=== PATIENT | male | born 1945 | race Caucasian/White ===

== ENCOUNTER 2023-07-03 10:34 | Emergency (ER) | payer MEDICARE, OTHER, SELFPAY ==
[2023-07-03 10:45] VITALS: BP 116/60
--- NOTE | 2023-07-03 11:34 | ED.GENMED ---
History of Present Illness
General
Chief Complaint: Skin Problem
Source: patient and spouse
Exam Limitations: none
Time Seen by Provider: 07/03/23 11:01
Travel History
Have you had any contact with someone who has COVID-19?: No
Do you have any symptoms of coronavirus? Fever > 100 degrees, chills, cough, shortness of breath, sore throat, loss of taste or smell, muscle aches, or headache?: No
History of Present Illness
History of Present Illness:
Ongoing cyst to the back that became inflamed and infected over this past week. Increased pain today. Minimal drainage. No systemic infectious symptoms.
Past History
Past History
ED Past Medical History: HTN
ED Past Surgical History: Appendectomy and Orthopedic
Social History
Tobacco: Non-smoker
Alcohol: None
Drug: None
Personal:
Living: with family
Review of Systems
Review of Systems
All Other Systems: Not applicable
Constitutional: Denies fever
Phy Exam
Physical Exam
Physical Exam:
General: Nontoxic appearing in no distress
Skin: Warm and dry, 3 cm indurated elevated abscess to the mid back. Small amount of drainage.
Neuro: Alert, nontoxic, grossly nonfocal
Psychiatric: Good eye contact and appropriate
Lungs: No respiratory distress
Course
Orders/Labs/Results
Orders:
Orders
07/03/23 11:34
Wound Culture [Wound/Abscess/Other Culture] Urgent
AYESHA Source: Abscess
Specimen Description:
Date Specimen was Collected: 07/03/23
Time Specimen was Collected: 11:49
Doxycycline [Vibramycin] 100 mg PO NOW STA
Vital Signs
Initial and Last Documented VS:
Initial Vital Signs
Temp Pulse Resp BP Pulse Ox
98.1 F 90 16 116/60 98
07/03/23 10:45 07/03/23 10:45 07/03/23 10:45 07/03/23 10:45 07/03/23 10:45
Last Documented Vital Signs
Temp Pulse Resp BP Pulse Ox
98.1 F 90 16 116/60 98
07/03/23 10:45 07/03/23 10:45 07/03/23 10:45 07/03/23 10:45 07/03/23 10:45
Procedures
Incision/Drainage/Joint Aspiration
Middle Back:
Anethesia: 1% Lidocaine with Epi
Preparation: cleaned with Betadine
Type of procedure: drain
Nature of site: abscess
Description of abscess: greater than 3cm and complex
Loculations broken up: Yes
How much fluid was obtained?: small amount (She is centimeters purulent)
Fluid description: purulent
Treatment: left open for drainage, placed surgical drain and antibiotics started
*Critical Care Note
Total Time (30-74mins, 75-104mins- exclusive of procedures): Not Applicable
ED Attending Note
-
Portions of this chart may have been created with voice recognition software.� Occasional wrong word or��sound alike� substitutions may have occurred due to the inherent limitations of voice recognition software.
Discharge Plan
Departure
Date of Disposition: 07/03/23
Time of Disposition: 11:36
Patient with high blood pressure during this ER visit?: Yes
Instructions: BLOOD PRESSURE, Skin Abscess
Prescriptions:
New
doxycycline hyclate 100 mg capsule
100 mg PO BID 10 Days Qty: 20 0RF
Activity Restrictions/Additional Instructions:
Your antibiotic prescription was sent to your pharmacy
Packing removal in 2 to 3 days, if it has not fallen out on its own
Interventions
Interventions:
*Risk Screen - Suicide Last Done: 07/03/23 11:54
*General Assessment Last Done: 07/03/23 11:53
*ED COVID-19 Vaccine History Last Done: 07/03/23 10:45
ED-Skin Assessment Last Done: 07/03/23 11:54
Discharge Date and Time
Print Language: SAMI
[2023-07-03] MEDS: VIBRAMYCIN 100 MG PO (11:48)
== END 2023-07-03 12:12 | disposition home or self-care (01) ==
LOC: EMR 10:34
PROVIDERS: EMERGENCY PHYSICIAN Emergency Medicine; FAMILY PHYSICIAN Family Medicine
DX: L02.212 Cutaneous abscess of back [any part, except buttock and flank] (principal); I10 Essential (primary) hypertension
CPT/HCPCS: 99284; 10060; 87070; 87205

== ENCOUNTER → 2023-07-08 13:19 | Outpatient (REF) | payer MEDICARE, OTHER, SELFPAY ==
[2023-07-08 13:56] LABS: % Basophils 1.1 % (0-2); % Eosinophils 3.9 % (0-6); % Immature Granulocytes 0.6 % (0-0.5); % Lymphocytes 31.6 % (20.5-51.1); % Monocytes 9.7 % (1.7-9.3); % Neutrophils 53.1 % (42.2-75.2); Absolute Basophils 0.1 10^3/uL (0-0.2); Absolute Eosinophils 0.2 10^3/uL (0-0.7); Absolute Lymphocytes 1.7 10^3/uL (1.2-3.4); Absolute Monocytes 0.5 10^3/uL (0.1-0.6); Absolute Neutrophils 2.8 10^3/uL (1.4-6.5); Hematocrit 48.7 % (39.0-52.0); Hemoglobin 17.3 g/dL (13.0-18.0); Mean Corp Hgb Conc. 35.5 g/dL (33.0-37.0); Mean Corpuscular Volume 101.5 fL (80.0-94.0); Mean Platelet Volume 9.4 fL (7.4-10.4); Nucleated Red Blood Cells % 0 % (-); Platelet Count 174 10^3/uL (130-400); Red Cell Dist. Width 12.5 % (11.5-14.5); White Blood Cell Count 5.3 10^3/uL (4.8-10.8)
[2023-07-08 14:23] LABS: ALT (SGPT) 80 U/L (0-50); AST (SGOT) 85 U/L (17-59); Albumin 4.4 g/dl (3.5-5.0); Alkaline Phosphatase 69 U/L (38-126); Blood Urea Nitrogen 8 mg/dl (9-20); Calcium 9.3 mg/dl (8.4-10.2); Carbon Dioxide 26 mmol/L (22-30); Chloride 97 mmol/L (98-107); Glucose 91 mg/dl (70-99); Potassium 4.5 mmol/L (3.5-5.1); Sodium 131 mmol/L (135-145); Total Bilirubin 0.9 mg/dl (0.2-1.3); Total Protein 7.2 g/dl (6.3-8.2); eGFR > 60.00
[2023-07-08 14:46] LABS: Glycohemoglobin (HgbA1c) 5.3 % (4.0-5.6)
[2023-07-08 14:49] LABS: Hepatitis A IgM Antibody Negative (Negative); Hepatitis B Core Ab, IgM Negative (Negative)
[2023-07-08 14:52] LABS: Hepatitis B Surface Antigen Negative (Negative)
[2023-07-08 15:09] LABS: Hepatitis B Core Ab, Total Negative (Negative); Hepatitis B Surface Antibody Negative; Hepatitis C Antibody Negative (Negative)
[2023-07-08 15:17] LABS: Hepatitis A Antibody, Total Positive (Negative)
== END ==
LOC: REG 13:19
PROVIDERS: ATTENDING PHYSICIAN Registered Nurse Ambulatory Care; FAMILY PHYSICIAN Registered Nurse
DX: K76.0 Fatty (change of) liver, not elsewhere classified (principal); R79.89 Other specified abnormal findings of blood chemistry; R74.01 Elevation of levels of liver transaminase levels; R73.01 Impaired fasting glucose
CPT/HCPCS: 36415; 80053; 83036; 85025; 86704; 86705; 86706; 86708; 86709; 86803; 87340

== ENCOUNTER → 2023-12-06 10:38 | Outpatient (REF) | payer MEDICARE, OTHER, SELFPAY | LOC: RCS 10:38 | PROVIDERS: ATTENDING PHYSICIAN Internal Medicine Cardiovascular Disease; FAMILY PHYSICIAN Family Medicine | DX: R06.09 Other forms of dyspnea (principal); R55 Syncope and collapse | CPT/HCPCS: 93306 ==

== ENCOUNTER 2024-04-19 08:45 | Emergency (ER) | payer MEDICARE, OTHER, SELFPAY ==
[2024-04-19 08:51] VITALS: BP 137/73
--- NOTE | 2024-04-19 10:58 | ED.GENMED ---
History of Present Illness
General
Chief Complaint: Change in Mental Status
Source: patient and family
Exam Limitations: none
Time Seen by Provider: 04/19/24 10:41
History of Present Illness
History of Present Illness:
78yoM with a history of atrial fibrillation on Eliquis and glaucoma presenting with his for evaluation of confusion. states that he he has had some mild confusion over the past 6 months and he seems to have difficulty understanding
things. He went on a family trip this past week and he had an episode of confusion several days ago in which he was unable to find the refrigerator. He was scheduled to have a meeting yesterday with a friend but did not remember that he had this
scheduled and also did not recall that he spoke with his friend on the phone. states he appears to be at baseline today and is lucid. Additionally, patient has been having left ankle pain and swelling for the past week or so. He is unsure of
any trauma. He denies any calf pain. He is otherwise asymptomatic and denies any chest pain, shortness of breath, vomiting, diarrhea, fevers.
Past History
Past History
ED Past Medical History: HTN
ED Past Surgical History: Appendectomy and Orthopedic
Social History
Tobacco: Non-smoker
Alcohol: None
Drug: None
Personal:
Living: with family
Phy Exam
General Physical Exam
General Presentation: well appearing and no apparent distress
General age: appears stated age
General Skin: warm and dry
General Habitus: normal
General Mental: alert
ENT Exam
ENT Exam: normocephalic
Cardiovascular Exam
Cardiovascular Exam: no edema, normal peripheral pulses (2+ L DP pulse) and irregularly irregular
Pulmonary Exam
Pulmonary Exam: lungs clear, no respiratory distress, no rales, no crackles and no rhonchi
Neurological Exam
Neurological Exam: alert, no motor deficits and other (Oriented to person and place. Does not remember if it's February or March. Knows the year. )
[place] Coma Scale
Eye Opening: Spontaneous
Verbal Response: Oriented
Motor Response: Obeys Commands
GCS Total Score: 15
Musculoskeletal Exam
Musculoskeletal Exam: other (Mild swelling noted to L ankle joint. +Tenderness along Achilles tendon, no step-offs. ROM intact. No calf tenderness or pitting edema to extremity. 2+ DP pulse. )
Skin Exam
Skin Exam: normal color and warm/dry
Psychiatric Exam
Psychiatric Exam: normal mood/affect
Course
Orders/Labs/Results
Orders:
Orders
04/19/24 08:[address] [CT Head W/o Iv Contrast] Stat
Comment:
Reason For Exam: change of mental status
04/19/24 08:59
Ankle, left 3 view CR [CR Ankle - Left Min 3 Views ] Urgent
Comment:
Reason For Exam: pain and swelling
04/19/24 10:57
Electrocardiogram (*1) Urgent
Reason for Study: Other
Other Reason for Exam: confusion
Cardiac Monitoring- Treatment ONCE
04/19/24 10:58
EKG- Treatment ONCE
04/19/24 11:13
Complete Blood Count/With Diff Urgent
Comprehensive Metabolic Panel Urgent
TSH Reflex To Free T4 Urgent
04/19/24 13:30
Urinalysis Reflex To Culture Urgent
Date Specimen was Collected: 04/19/24
Time Specimen was Collected: 13:27
Abnormal Lab Results
04/19/24 04/19/24
11:13 13:30
MCV 99.6 H fL
(80.0-94.0)
MCH 34.4 H pg
(27.0-31.0)
Creatinine 0.6 L mg/dL
(0.7-1.3)
Total Bilirubin 1.4 H mg/dl
(0.2-1.3)
Urine Ketones Trace A
(Negative)
04/19/24 11:13
04/19/24 11:13
Vital Signs
Initial and Last Documented VS:
Initial Vital Signs
Temp Pulse Resp BP Pulse Ox
98.4 F 101 18 137/73 98
04/19/24 08:51 04/19/24 08:51 04/19/24 08:51 04/19/24 08:51 04/19/24 08:51
Last Documented Vital Signs
Temp Pulse Resp BP Pulse Ox
98.4 F 116 15 115/68 97
04/19/24 08:51 04/19/24 12:00 04/19/24 12:00 04/19/24 12:00 04/19/24 12:00
MDM/Problems Addressed
Differential Diagnosis Includes:
78yoM here with episodes of confusion. Has been having mild confusion x several months. Had two episodes of forgetfulness over the past few days. Currently lucid and at baseline. Patient has no complaints at this time. VSS. He is oriented to person
and place. Knows year but did not remember if it was February or March. Differential diagnosis includes but is not limited to: toxic metabolic encephalopathy, dementia, UTI, thyroid dysfunction
Initial ED plan: CT head obtained in triage shows moderate diffuse cortical atrophy without acute findings. X-rays of L ankle negative for fractures. Check CBC, CMP, TSH, UA, and EKG.
*EKG
Interpreted by ED Provider?: Yes
EKG Intrepretation Date: 04/19/24
Heart Rate: 113
Rate: tachycardiac
Rhythm: a-fib
[place]: left axis deviation
Interval: normal interval
QRS Pattern: normal QRS
Ischemia: no ischemia
*Critical Care Note
Total Time (30-74mins, 75-104mins- exclusive of procedures): Not Applicable
Update Note
Update Note:
Labs overall unremarkable including normal electrolytes, glucose, renal function, and TSH. Informed by nursing staff that patient and are requesting to leave. UA results still pending. Patient needs to leave to turkey picker his grandchildren from
the bus stop and is unable to remain in the ED and the longer. Patient currently at baseline mental status and symptoms are subacute in nature. HR mildly elevated here in 100-110 range. EKG shows atrial fibrillation which he has a known history
of. Patient has no cardiac complaints at this time. No indication for hospitalization at this time. Patient advised to follow-up with his PCP as well as neurology. ED return precautions discussed. Patient discharged stable condition.
ED Attending Note
-
Portions of this chart may have been created with voice recognition software.� Occasional wrong word or��sound alike� substitutions may have occurred due to the inherent limitations of voice recognition software.
Discharge Plan
Departure
Patient Disposition: Home (Routine Discharge)
Date of Disposition: 04/19/24
Time of Disposition: 14:45
Patient with high blood pressure during this ER visit?: No
Discharge Problem:
Episode of confusion
Prescriptions:
No Action
doxycycline hyclate 100 mg capsule
100 mg PO BID 10 Days Qty: 20 0RF
Referrals:
Lamin Howe Jr., [Family Provider] -
Rogers Larry MD [Active] -
Activity Restrictions/Additional Instructions:
Please call today to schedule a follow-up with your family doctor and neurology. Return to the ER immediately with any new or worsening symptoms.
Interventions
Interventions:
*Risk Screen - Suicide Last Done: 04/19/24 08:51
*General Assessment Last Done: 04/19/24 08:51
*Neglect/Abuse Screening Last Done: 04/19/24 08:51
*ED COVID-19 Vaccine History Last Done: 04/19/24 11:02
*Nursing Disposition Last Done: 04/19/24 14:55
ED- Neurological Assessment Last Done: 04/19/24 12:08
Discharge Date and Time
Discharge Date/Time: 04/19/24 14:56
Print Language: KYRGYZ
[2024-04-19 11:02] VITALS: BMI 26.6
[2024-04-19 11:13] VITALS: BP 138/90
[2024-04-19 11:27] LABS: % Basophils 0.8 % (0-2); % Eosinophils 2.3 % (0-6); % Immature Granulocytes 0.5 % (0-0.5); % Lymphocytes 22.9 % (20.5-51.1); % Monocytes 8.4 % (1.7-9.3); % Neutrophils 65.1 % (42.2-75.2); Absolute Basophils 0.1 10^3/uL (0-0.2); Absolute Eosinophils 0.2 10^3/uL (0-0.7); Absolute Lymphocytes 1.5 10^3/uL (1.2-3.4); Absolute Monocytes 0.5 10^3/uL (0.1-0.6); Absolute Neutrophils 4.2 10^3/uL (1.4-6.5); Hemoglobin 16.6 g/dL (13.0-18.0); Mean Corp Hgb Conc. 34.6 g/dL (33.0-37.0); Mean Corpuscular Hgb 34.4 pg (27.0-31.0); Mean Corpuscular Volume 99.6 fL (80.0-94.0); Mean Platelet Volume 10.1 fL (7.4-10.4); Nucleated Red Blood Cells % 0 % (-); Platelet Count 152 10^3/uL (130-400); Red Blood Cell Count 4.82 10^6/uL (4.70-6.10); Red Cell Dist. Width 12.2 % (11.5-14.5); White Blood Cell Count 6.4 10^3/uL (4.8-10.8)
[2024-04-19 11:58] LABS: ALT (SGPT) 42 U/L (0-50); AST (SGOT) 41 U/L (17-59); Albumin 4.5 g/dl (3.5-5.0); Alkaline Phosphatase 74 U/L (38-126); Blood Urea Nitrogen 12 mg/dl (9-20); Carbon Dioxide 28 mmol/L (22-30); Chloride 99 mmol/L (98-107); Estimated Creatinine Clearance 121 ml/min; Glucose 92 mg/dl (70-99); Potassium 4.3 mmol/L (3.5-5.1); Sodium 137 mmol/L (135-145); Total Bilirubin 1.4 mg/dl (0.2-1.3); Total Protein 7.3 g/dl (6.3-8.2); eGFR > 60.00
[2024-04-19 12:00] VITALS: BP 115/68
[2024-04-19 13:45] LABS: Urine Albumin Negative (Neg - Trace); Urine Bilirubin Negative (Negative); Urine Character Clear (Clear); Urine Color Yellow; Urine Glucose Negative (Negative); Urine Ketone Trace (Negative); Urine Leukocyte Negative (Negative); Urine Nitrite Negative (Negative); Urine Occult Blood Negative (Negative); Urine Urobilinogen Negative (Neg - 1+)
[2024-04-19 14:12] LABS: TSH Reflex To Free T4 1.36 uIU/ml (0.47-4.68)
== END 2024-04-19 14:56 | disposition home or self-care (01) ==
LOC: EMR 08:45
PROVIDERS: Physician Assistant; EMERGENCY PHYSICIAN Emergency Medicine; FAMILY PHYSICIAN Family Medicine
DX: R41.82 Altered mental status, unspecified (principal); I48.91 Unspecified atrial fibrillation; I10 Essential (primary) hypertension; Z79.01 Long term (current) use of anticoagulants; Z90.49 Acquired absence of other specified parts of digestive tract
CPT/HCPCS: 99284; 70450; 73610; 80053; 81003; 84443; 85025; 93005

== ENCOUNTER → 2024-04-27 11:22 | Outpatient (REF) | payer MEDICARE, OTHER, SELFPAY ==
[2024-04-27 13:44] LABS: Folate 10.3 ng/ml (2.76-20); Vitamin B12 345 pg/ml (239-931)
[2024-04-27 16:47] LABS: Syphilis/T. pallidum Ab Reflex Negative (Negative)
== END ==
LOC: REG 11:22
PROVIDERS: ATTENDING PHYSICIAN Registered Nurse
DX: R41.3 Other amnesia (principal); R41.82 Altered mental status, unspecified; F10.10 Alcohol abuse, uncomplicated
CPT/HCPCS: 36415; 82607; 82746; 84425; 86780

== ENCOUNTER → 2024-07-18 11:27 | Outpatient (REF) | payer MEDICARE, OTHER, SELFPAY | LOC: RAD 11:27 | PROVIDERS: ATTENDING PHYSICIAN Registered Nurse | DX: M79.605 Pain in left leg (principal); M54.42 Lumbago with sciatica, left side | CPT/HCPCS: 72110; 93971 ==

== ENCOUNTER 2024-07-27 09:58 | Day surgery (SDC) | payer MEDICARE, OTHER, SELFPAY ==
--- NOTE | 2024-07-24 08:47 | HPS.HSE ---
Family Physician
-
Family Physician: INTERVIEWE UNKNOWN - PT NOT
Chief Complaint
-
Paroxysmal atrial fibrillation.
History of Present Illness
The patient is a 78-year-old male presenting today for paroxysmal atrial fibrillation. The patient reports progressively worsening exertional shortness of breath and fatigue secondary to this diagnosis. He also occasionally notes
palpitations. He is on current pharmacological therapy with Metoprolol Succinate. He does take Eliquis; however, this was recently held for three days due to ongoing back pain in which the patient preferred to take Aspirin but wanted to avoid any
excessive bleeding. He did restart his Eliquis the evening of 07/17/2024. He notes that his current symptoms associated with his arrhythmia are greatly interfering with his activities of daily living and are overall impacting his quality of life. He
is interested in pursuing pulmonary vein isolation for further arrhythmia management. Prior to undergoing his ablation, he will proceed first with a transesophageal echocardiogram to definitively rule out a left atrial appendage thrombus. He denies
any current complaints today such as chest pain, shortness of breath at rest, nausea, vomiting, diarrhea, lightheadedness, dizziness, cough, sore throat, or fever.
Medical History
Past Medical History
Past Medical History: Reports Other
Additional Past Medical History:
1. Paroxysmal atrial fibrillation, pharmacological therapy with Metoprolol succinate, oral anticoagulation with Eliquis.
2. Hypertension.
3. Hyperlipidemia.
4. Near-syncope, likely vasovagal, 05/2023.
5. Mild mitral regurgitation.
6. Dilated aortic root.
7. Chronic dyspnea on exertion.
8. GERD.
9. Colon polyps.
10. Hemorrhoids.
11. Hepatic steatosis.
12. Mild cognitive impairment.
13. Multilevel degenerative disc disease with radiculopathy.
14. Chronic T12 compression fracture.
15. Osteoarthritis.
16. Skin cancer, status post excision.
17. Nocturia.
18. Glaucoma.
19. Herpes simplex virus.
20. Erectile dysfunction.
21. Remote history of tobacco abuse.
22. Previous alcohol use disorder.
Past Surgical History: Reports Other
Additional Past Surgical History:
1. Appendectomy.
2. Right knee surgery.
3. I&D of back abscess.
4. Bilateral glaucoma surgery.
5. Bilateral cataract extraction.
6. Dental extraction.
7. Colonoscopy x4.
Social History
Tobacco: Former Smoker (He is a former cigarette smoker who quit tobacco products altogether 43 years ago.)
Alcohol: Other (He does report heavy alcohol use in the past; however, he currently drinks beer socially. )
Personal:
Living: Other (The patient lives in a two-story home with his spouse and two grandchildren. )
Family History
Family History: Not pertinent
Allergies / Home Medications
Allergy/Medication List:
Home medications:
1. Apixaban 5 mg p.o. twice a day.
2. Dorzolamide-timolol 2-0.5% drops, one drop ophthalmic twice daily.
3. Metoprolol Succinate 25 mg p.o. at bedtime.
4. Prednisone 10 mg taper p.o. as directed.
5. Sildenafil 25 mg p.o. daily as needed.
6. Valacyclovir 1000 mg p.o. twice a day.
Allergies: No known allergies.
Review of Systems
-
A 12 point ROS was completed and negative except as noted: Yes
Physical Exam
Vital Signs
Blood pressure 135/94, heart rate is 77, respirations 18, pulse ox 98% on room air.
Height 6 feet, 2.5 inches, weight 95.4 kg, BMI 26.6.
Physical Exam
General: Well Developed, Well Nourished and No Apparent Distress
HEENT: NormoCephalic, Moist mucous membranes, Atraumatic and PERRLA
Respiratory: Clear
Cardiac: Irregular Rhythm
GI: Soft, Non Tender and Non Distended
Musculoskeletal: No Edema and Other (The patient presents in a wheelchair but can ambulate with a single point cane. )
Skin: Warm and Dry
Neuro: AO x 3 and Other (Mild cognitive deficits at baseline. )
Laboratory Results
-
EKG 07/20/2024: Atrial fibrillation. Prolonged QT. QT interval <500.
Chest CT 07/20/2024: Short segment common vestibule for the left superior and inferior pulmonary veins, fairly commonly seen and considered normal variant. Partial nonopacification of the left atrial appendage, likely related to incomplete contrast
filling; however, cannot rule out thrombus. The left atrium is otherwise well opacified.
Echocardiogram 12/06/2023: Mildly reduced to low-normal systolic function. Left ventricular ejection fraction is 50-55%. Mild mitral regurgitation. Dilated aortic root. Sinus of Valsalva measures 4.1 cm, sinotubular junction measures 3.8 cm,
ascending aorta measures 3.6 cm. The aortic arch is normal in caliber.
Nuclear stress test 06/17/2022: Negative EKG for ischemia. Small predominantly fixed defect in the basal inferior, mid inferolateral, and mid inferior segments, most consistent with soft tissue attenuation since the defect improves with prone
imaging. The ejection fraction is 73%. This is a low risk study. Magdaleno treadmill score equals +6. Paroxysmal atrial fibrillation is seen during the study, terminating terminating spontaneously in five minutes.
Impression/Plan
-
IMPRESSION/PLAN:
1. Paroxysmal atrial fibrillation: The patient is in need of pulmonary vein isolation for further arrhythmia management; however, he will undergo a transesophageal echocardiogram first to definitively rule out a left atrial appendage thrombus. This
is scheduled to take place on 07/27/[address] Roya Moss. The benefits and risks of the procedure have been explained to the patient. The patient understands these risks and wishes to proceed. The patient is aware to continue compliance
with his Eliquis.
== END 2024-07-27 11:30 | disposition home or self-care (01) ==
LOC: CATH 09:58
PROVIDERS: ATTENDING PHYSICIAN Internal Medicine Cardiovascular Disease; FAMILY PHYSICIAN Registered Nurse; OTHER PHYSICIAN Internal Medicine Cardiovascular Disease
DX: I48.0 Paroxysmal atrial fibrillation (principal); R06.02 Shortness of breath; I10 Essential (primary) hypertension; E78.5 Hyperlipidemia, unspecified; I34.0 Nonrheumatic mitral (valve) insufficiency; K21.9 Gastro-esophageal reflux disease without esophagitis; M19.90 Unspecified osteoarthritis, unspecified site; Z85.828 Personal history of other malignant neoplasm of skin; Z87.891 Personal history of nicotine dependence; Z79.01 Long term (current) use of anticoagulants
CPT/HCPCS: 93312; 93320; 93325

== ENCOUNTER 2024-08-02 10:31 | Day surgery (SDC) | payer MEDICARE, OTHER, SELFPAY ==
[2024-07-20 13:46] VITALS: BMI 26.7
[2024-08-02] VITALS (33 sets, daily range): BP systolic 100–143; BP diastolic 65–103; BMI 27.6
[2024-08-02 14:23] LABS: ACT-LR - POC 281 Seconds (116-155)
[2024-08-02 14:41] LABS: ACT-LR - POC 314 Seconds (116-155)
--- NOTE | 2024-08-02 15:06 | ITS.CL.ABL ---
Retail Business Development Manager - Ablation
Ablation
Procedure Report:
ELECTROPHYSIOLOGY ABLATION STUDY
DATE:: August 02, 2024�����������������������������REFERRING: Dr. Polo Addison
INDICATION: Persistent atrial fibrillation which is symptomatic
HISTORY: See H and P.��As above
ANTIARRHYTHMIC DRUG: Metoprolol
PRE-PROCEDURE JEANNETTE: No intracardiac thrombus
PRESENTING RHYTHM: A-fib
'TIME-OUT':��called and confirmed.
SEDATION/ANESTHESIA:��provided via the anesthesia department using general anesthesia (LMA).
INTRAVENOUS/ARTERIAL ACCESS:
Right femoral venous -8 Panamanian, upgraded to 16.8 Panamanian outer sheath
Left femoral venous -9 Panamanian, 7 Panamanian
Ultrasound guidance for bilateral femoral vein access was utilized by me to obtain access with demonstration of normal anatomy
Vascade vascular closure was utilized in the right femoral venotomy and the 7 [place]amanian short sheath on the left with manual pressure for the 9 Panamanian short sheath.
PROCEDURE:
1.��A decapolar CS catheter was placed within the CS for mapping and pacing.��This was also used as the reference catheter for the 3-D map.
2. The intracardiac ultrasound catheter was positioned in the RA to identify the FO for targeting of transseptal puncture, assist��in identification of the pulmonary vein ostia, monitoring pre and post ablation pulmonary vein flow velocities,
monitoring for 'bubble' formation during RF application as a sign of thermal injury,��and to monitor for pericardial effusion during mapping and ablation procedure.���Left atrial size, LV ejection fraction, and pulmonary vein flows were monitored
pre and post ablation procedure. The other valves were inspected and found to be free of significant regurgitation or stenosis.
3.��Half of the calculated heparin bolus was administered prior to the first transeptal puncture.��Transseptal puncture was performed to diagnose RA and LA pressure so that safety of LA mapping and ablation could be further assessed, and to access
the left atrium and pulmonary veins for mapping and ablation.��This entailed advancing an 16.8 Panamanian sheath, RF wire with dilator into the superior vena cava and withdrawing both (monitoring intracardiac ultrasound, fluoroscopy and tip pressure)
with the tip oriented toward the atrial septum.��The fossa ovalis was engaged (indicated by sudden displacement of the sheath tip as well as tenting of the fossa seen on intracardiac ultrasound).��Left atrial access required a pass with the
Brockenbrough needle extended.��Left atrial catheter position was confirmed by pressure monitoring (RA mean pressure 4 mm Hg and LA mean presure 14 mm Hg), LA saturation (99%),��as well as fluoroscopy.��The sheath was advanced over the dilator and
positioned in the left atrium.��This procedure was repeated for the Agilis sheath.��The remainder of the calculated heparin bolus was administered and heparin was
infused to maintain ACT at 300 -350 seconds throughout the case.
4.��RA pacing was performed via the proximal decapolar poles and LA pacing was performed via the distal decapolr poles.
5. A quadrapolar catheter was first positioned at the His position for His Bundle recording which was tagged via the 3-D Navex sytem, and then passed to the RVA for RV pacing and recording.
6. The decapolar and Penta splint catheter placed in each of the LIPV, LSPV, RSPV and the RIPV.��
7.��Next, a 3-D map was created using Navex.���A 3-D reconstructed CT image was compared to the 3-D Navex map to assist in anatomic interpretation, mapping and ablation.��The CT image and the NavX image were fused.
8. A total of 54 lesions were given and all of in basket pose to the pulmonary veins and floor opposed to the roof posterior wall and floor of the left atrium. Patient was cardioverted to sinus rhythm and entrance block was confirmed in all 4
pulmonary veins and the posterior wall.
9. Normal sinus node and AV node function noted.
TOTAL FLOURO TIME: 14 minutes 123 mGy
TOTAL RF DURATION: 0 minutes
REVERSAL OF HEPARIN: 40 mg of protamine, slow IV administration
COMPLICATIONS:
None
Intracardiac US shows no pericardial effusion post ablation.
SUMMARY:��
Complex left atrial mapping and ablation.
Isolation of the pulmonary veins as well as the left atrial floor, posterior wall, roof.
RECOMMENDATIONS:
1. Ambulate in 3 hours
2. Resume anticoagulation
3.� May need increase in metoprolol to 50 mg p.o. nightly as he has rapid rates in atrial fibrillation and sinus rates in the high 80s.
4.��Out of bed 4 hours and consider same-day discharge
Copy to: Dr. Polo Addison
[2024-08-02] MEDS: DILAUDID 0.25 MG IV (16:14)
[2024-08-02] MEDS: NEURONTIN 100 MG PO ×2 (16:28→21:07)
--- NOTE | 2024-08-02 17:07 | W.PN.UPDATE ---
Update Note
Progress Note Update
78 yo WM s/p PVI (Same day). He denies cp, sob, cici clears, mod back pain improved with meds/positioning, EKG SR with bursts on PAT, b/l groins vascade c/d/i no HT, soft. HE will resume Eliquis tonight after 9pm. We will increase metoprolol xl to
50mg qpm. Activity restrictions reviewed. He will f/u Dr. Addison in 3 mo. He is for d/c home after 7pm if groins stable and voiding.
[2024-08-02] MEDS: TYLENOL 650 MG PO (18:04)
--- NOTE | 2024-08-02 19:00 | PTCARENOTE ---
Pt to be discharged at 1900 post PVI. After pt ambulated to bathroom, pt's right groin with oozing and hematoma. Pt laid in bed and manual pressure applied x 20 minutes. Hemostasis obtained and hematoma compressed. Dr Addison made aware and pt is to
be admitted. Pt's at pt bedside. Will continue to monitor.
--- NOTE | 2024-08-02 20:20 | PTCARENOTE ---
Assumed care of the patient at 2015. Patient in bed, AOx3, pleasant. SR-afib/atach on the monitor rates 90-110's, HR irregular on auscultation, pulses palpable, no edema noted. Lungs clear RA. Normoactive BS. Patient endorses no issues voiding. B/L
groin sites stable from previous assessment, tender to palpation, stable. PIVx1. Patient updated on POC and in agreement. Assessment of needs ongoing.
[2024-08-02] MEDS: TIMOPTIC 0.5% OPHTHALMIC SOLUTION 1 DROP BOTH EYES (20:41)
[2024-08-02] MEDS: ALPHAGAN 0.2% EYE DROPS 1 DROP BOTH EYES (20:52)
[2024-08-02] MEDS: ELIQUIS 5 MG PO (20:52)
[2024-08-02] MEDS: TOPROL XL 25 MG PO (21:07)
[2024-08-02] MEDS: VALTREX 1000 MG PO (21:12)
[2024-08-02] MEDS: ROXICODONE 5 MG PO (22:52)
[2024-08-03] VITALS (28 sets, daily range): BP systolic 72–124; BP diastolic 51–95; BMI 27.2
--- NOTE | 2024-08-03 | PTCARENOTE ---
Pt with a small amount of [place] red blood on the R access site dressing, CVPA aware. Hematoma stable, no changes, pulses palpable B/L, VSS. Placed on 2LNC for desatting to 88% on RA. Call giordano within reach, assessment of needs ongoing
--- NOTE | 2024-08-03 02:45 | PTCARENOTE ---
Pt with increased bleeding on dressing of R groin site; CVPA at bedside, pressure held and Innoseal applied. Hematoma improved at this time.
[2024-08-03] MEDS: ROXICODONE 5 MG PO (03:00)
[2024-08-03] MEDS: TYLENOL 650 MG PO (03:01)
[2024-08-03 05:19] LABS: Hematocrit 42.3 % (39.0-52.0); Mean Corp Hgb Conc. 35.5 g/dL (33.0-37.0); Mean Corpuscular Hgb 34.6 pg (27.0-31.0); Mean Corpuscular Volume 97.7 fL (80.0-94.0); Mean Platelet Volume 10.3 fL (7.4-10.4); Platelet Count 137 10^3/uL (130-400); Red Blood Cell Count 4.33 10^6/uL (4.70-6.10); Red Cell Dist. Width 13.2 % (11.5-14.5); White Blood Cell Count 8.2 10^3/uL (4.8-10.8)
[2024-08-03 05:38] LABS: Blood Urea Nitrogen 16 mg/dl (9-20); Calcium 9.2 mg/dl (8.4-10.2); Carbon Dioxide 23 mmol/L (22-30); Chloride 106 mmol/L (98-107); Estimated Creatinine Clearance 118 ml/min; Glucose 143 mg/dl (70-99); Magnesium 1.9 mg/dl (1.6-2.3); Potassium 4.6 mmol/L (3.5-5.1); Sodium 137 mmol/L (135-145); eGFR > 60.00
--- NOTE | 2024-08-03 08:00 | W.PN.CARDCBS ---
Addendum entered and electronically signed by Jos Addison MD 08/03/24 10:59:
agree with SCIENTIFIC SOFTWARE DEVELOPER note and assessment
agree with SCIENTIFIC SOFTWARE DEVELOPER plan
PAT and SR noted
some right groin oozing which is improved
exam:
aao x 3
cor regular
tele with PAT
right groin and left groin cdi
dressing dry
non focal neurologically
lungs clear bilaterally
Impression:
Symptomatic PAF
post PVI 08/02/24
HTN
HLD
GERD
HSV
mild MR
Dilated Aortic root
OA with chronic back pain
Plan:
groin c/d/i soft, no HT
tele SR with bursts of PAT asymptomatic
OAC Eliquis
Will increase metoprolol xl to 50mg qpm, today will do 25mg bid
Activity restrictions reviewed
f/u Dr. Madison in 3 mo
home today
Original Note:
Today's Communication / Plan
-
post ablation stable for d/c home
continue Eliquis, increase metoprolol 50mg qpm
Impression / Plan
-
PCP: :Lamin Howe, DO
CDY: Andrei Madison MD
Impression:
Symptomatic PAF
post PVI 08/02/24
HTN
HLD
GERD
HSV
mild MR
Dilated Aortic root
OA with chronic back pain
Plan:
post ablation feels good
observed o/n for groin oozing
groin c/d/i soft, no HT
tele SR with bursts of PAT asymptomatic
OAC Eliquis
Will increase metoprolol xl to 50mg qpm, today will do 25mg bid
Activity restrictions reviewed
f/u Dr. Madison in 3 mo
home today
Progress Note - Acid Treater
Subjective
Date of Service: August 03, 2024
denies cp, sob
Objective
Labs:
08/03/24 04:39
08/03/24 04:39
Labs
Hgb 15.0 g/dL (13.0-18.0) 08/03/24 04:39
Hct 42.3 % (39.0-52.0) 08/03/24 04:39
Plt Count 137 10^3/uL (130-400) 08/03/24 04:39
Sodium 137 mmol/L (135-145) 08/03/24 04:39
Potassium 4.6 mmol/L (3.5-5.1) 08/03/24 04:39
BUN 16 mg/dl (9-20) 08/03/24 04:39
Creatinine 0.6 mg/dL (0.7-1.3) L 08/03/24 04:39
Glucose 143 mg/dl (70-99) H 08/03/24 04:39
Vital Signs and I&O:
Vital Signs
Temp Pulse Resp BP Pulse Ox
97.6 F 74 13 93
08/03/24 07:43 08/03/24 07:43 08/03/24 07:43 08/03/24 07:32 08/03/24 07:43
Vital Signs
Temp Pulse Resp BP Pulse Ox
97.6 F 74 13 93
08/03/24 07:43 08/03/24 07:43 08/03/24 07:43 08/03/24 07:32 08/03/24 07:43
Intake & Output
08/01/24 08/02/24 08/03/24 08/04/24
06:59 06:59 06:59 06:59
Intake Total 1730 / 1730
Output Total 210 / 210
Balance 1520 / 1520
Physical Exam
Physical Exam
NAD< AOX3
S1, S2, RRR
CTAB, non labored, no wheeze
SNTND bsx4
R fem site c/d/i no HT, soft
[2024-08-03] MEDS: TOPROL XL 25 MG PO (08:02)
[2024-08-03] MEDS: NEURONTIN 100 MG PO (08:02)
[2024-08-03] MEDS: ELIQUIS 5 MG PO (08:02)
[2024-08-03] MEDS: VALTREX 1000 MG PO (08:02)
[2024-08-03] MEDS: ALPHAGAN 0.2% EYE DROPS 1 DROP BOTH EYES (08:03)
[2024-08-03] MEDS: TIMOPTIC 0.5% OPHTHALMIC SOLUTION 1 DROP BOTH EYES (08:03)
--- NOTE | 2024-08-03 08:43 | PTCARENOTE ---
Patient received from security shift supervisor resting oob in chair, AAO x 3, denies pain. NSR w/bursts PAT/PAF, SaO2 @ 93% on RA. B/L groin sites stable, soft, nontender, distal pulses palpable. Dr. Addison, Saida GUPTA to bedside t/o am, updated to status.
Patient updated to plan of care including probable d/c home, in agreement. See work list for full assessment and interventions performed.
--- NOTE | 2024-08-03 11:38 | PTCARENOTE ---
Patent assisted oob to bathroom, voided, settled to chair. at bedside. BP remains low, Saida GUPTA updated. Patient denies dizziness. Lunch ordered.
--- NOTE | 2024-08-03 12:43 | CM ---
CM following for DC planning needs.
Met w/ patient + spouse at bedside to complete initial assessment.
Pt. resides w/ spouse in a private home. He is functionally indep. with use of a walking stick or 1 crutch.
He is [facility] and goes to [facility] for medical care in addition to local MD.
DC plan is for home, no needs.
--- NOTE | 2024-08-03 13:28 | W.DS.TRANS ---
DC Summary - Surgical Assistant
-
Discharge Instructions:
Sleep Apnea Risk Intermediate
Discharge Diagnosis/Procedures Atrial fibrillation post ablation
Diet Low Sodium
Driving Restrictions No driving for 24 hours
Instructions: Atrial fibrillation
Catheter ablation for the heart
Heart-healthy diet
Stand-Alone Forms: DC Instructions- Cath/EP Lab
Changes to Home Medications: Yes
Discharge Medications:
DC Medications w/original date entered in [facility]
apixaban 5 mg tablet (Eliquis) 5 mg PO BID 07/18/24
dorzolamide-timolol (PF) 2 %-0.5 % eye drops in a dropperette 1 drp ophthalmic (eye) BID 07/18/24
sildenafil 25 mg tablet 25 mg PO DAILY PRN ED 07/18/24
valacyclovir 1 gram tablet 1,000 mg PO BID 07/18/24
gabapentin 100 mg tablet 100 mg PO TID 07/27/24
metoprolol succinate 50 mg tablet,extended release 24 hr (Toprol XL) 50 mg PO QPM #90 tabs 08/02/24
Home Medication Changes
increase metoprolol to 50
Pending Results: No
--- NOTE | 2024-08-03 14:18 | PTCARENOTE ---
ALONSO Paz, updated to BP - ok to d/c patient. Patient ambulated garcia approx 250 feet w/out issue. PIV removed. Discharge instructions thoroughly reviewed w/patient and spouse, including medication changes. All questions answered. Patient
transported to waiting vehicle for d/c home with spouse.
== END 2024-08-03 14:34 | disposition home or self-care (01) | DRG 274 ==
LOC: CATH 10:31
PROVIDERS: Nurse Practitioner Adult Health; ATTENDING PHYSICIAN Internal Medicine Cardiovascular Disease; FAMILY PHYSICIAN Registered Nurse
PROC: 4A0234Z Measurement of Cardiac Electrical Activity, Percutaneous Approach (ICD-10-PCS; 2024-08-02)
PROC: 02583ZZ Destruction of Conduction Mechanism, Percutaneous Approach (ICD-10-PCS; 2024-08-02)
PROC: B24BZZ4 Ultrasonography of Heart with Aorta, Transesophageal (ICD-10-PCS; 2024-08-02)
PROC: 4A023FZ Measurement of Cardiac Rhythm, Percutaneous Approach (ICD-10-PCS; 2024-08-02)
PROC: 02K83ZZ Map Conduction Mechanism, Percutaneous Approach (ICD-10-PCS; 2024-08-02)
DX: I48.19 Other persistent atrial fibrillation (principal); M48.54XA Collapsed vertebra, not elsewhere classified, thoracic region, initial encounter for fracture; I10 Essential (primary) hypertension; E78.5 Hyperlipidemia, unspecified; I34.0 Nonrheumatic mitral (valve) insufficiency; K21.9 Gastro-esophageal reflux disease without esophagitis; K76.0 Fatty (change of) liver, not elsewhere classified; G31.84 Mild cognitive impairment of uncertain or unknown etiology; B00.9 Herpesviral infection, unspecified; I77.810 Thoracic aortic ectasia; G89.29 Other chronic pain; M19.90 Unspecified osteoarthritis, unspecified site; Z79.01 Long term (current) use of anticoagulants; Z79.52 Long term (current) use of systemic steroids; Z79.899 Other long term (current) drug therapy; Z87.891 Personal history of nicotine dependence
CPT/HCPCS: 80048; 83735; 85027; 85347; 86900; 86901; 93005; 93656; 93657; C1730; C1732; C1733; C1759; C1760; C1766; C1892; C1894

== ENCOUNTER → 2024-10-13 09:52 | Outpatient (REF) | payer MEDICARE, OTHER, SELFPAY | LOC: RAD 09:52 | PROVIDERS: ATTENDING PHYSICIAN Physician Assistant Medical; FAMILY PHYSICIAN Registered Nurse | DX: S06.6X1D Traumatic subarachnoid hemorrhage with loss of consciousness of 30 minutes or less, subsequent encounter (principal) | CPT/HCPCS: 70450 ==

== ENCOUNTER 2025-02-04 17:59 | Observation (INO) | payer MEDICARE, OTHER, SELFPAY ==
[2025-02-04] VITALS (9 sets, daily range): BP systolic 117–147; BP diastolic 72–93; BMI 25.6
[2025-02-04 12:47] LABS: Hematocrit 49.0 % (39.0-52.0); Hemoglobin 16.8 g/dL (13.0-18.0); Mean Corp Hgb Conc. 34.3 g/dL (33.0-37.0); Mean Corpuscular Volume 97.6 fL (80.0-94.0); Nucleated Red Blood Cells % 0 % (-); Platelet Count 165 10^3/uL (130-400); Red Cell Dist. Width 13.3 % (11.5-14.5)
[2025-02-04 12:56] LABS: ALT (SGPT) 29 U/L (0-50); AST (SGOT) 27 U/L (17-59); Albumin 4.3 g/dl (3.5-5.0); Alkaline Phosphatase 78 U/L (38-126); Blood Urea Nitrogen 11 mg/dl (9-20); Calcium 9.3 mg/dl (8.4-10.2); Carbon Dioxide 24 mmol/L (22-30); Chloride 105 mmol/L (98-107); Glucose 128 mg/dl (70-99); Potassium 4.7 mmol/L (3.5-5.1); Sodium 133 mmol/L (135-145); Total Protein 7.2 g/dl (6.3-8.2); eGFR > 60.00
[2025-02-04 13:07] LABS: Troponin I 0.015 ng/ml
--- NOTE | 2025-02-04 14:30 | ED.GENMED ---
History of Present Illness
General
Chief Complaint: Dizziness
Source: patient, spouse and family
Exam Limitations: none
Time Seen by Provider: 02/04/25 13:20
Nursing documentation reviewed up to this point in time: agreed with
History of Present Illness
History of Present Illness:
Note:
CHIEF COMPLAINT(S)
Dizziness
HISTORY OF PRESENT ILLNESS
The patient is a 79-year-old male who presented with dizziness. He described the episode as feeling unsteady on his feet and needing to hold onto a counter for support. He denied any sensation of the room spinning but reported that his head was
spinning. The dizziness felt unusual to him, stating, 'my head is messed up anyway.' The dizziness made him feel as if he was going to fall, although he did not actually fall.
He is aware of his past medical history of vascular dementia and is currently anticoagulated with apixaban (Eliquis). However, he missed his dose this morning. He recently had an MRI. According to his family member, who was present, the dizziness
could possibly indicate a stroke. There is a concern that his atrial fibrillation, although not rapid currently, could potentially contribute to his symptoms. A computed tomography (CT) scan of the head is planned to further investigate these
symptoms.
PAST MEDICAL AND SURGICAL HISTORY
- Vascular dementia
- Atrial fibrillation
- History of an ablation procedure
MEDICATIONS
- Apixaban (Eliquis), but missed this morning�s dose
REVIEW OF SYSTEMS
- Neurological: Dizziness accompanied by a sensation of the head spinning without the room spinning.
PHYSICAL EXAM
General: Alert, no acute distress.
Neurological: Noted unsteadiness on feet; able to follow commands such as lifting arms and legs, and closing eyes tightly. No focal neurological deficits observed.
Psychiatric: Cooperative, appropriate mood and affect.
PROBLEM LIST
- Acute: Dizziness
- Chronic: Vascular dementia, atrial fibrillation
PLAN
- Perform a CT scan of the head to evaluate for potential stroke or other intracranial pathology.
- Assess the impact of atrial fibrillation on the patient�s symptoms and rule out any contributing vascular issues.
DIFFERENTIAL DIAGNOSIS
The Differential Diagnosis includes, in no particular order and is not limited to:
1. Transient ischemic attack
2. Stroke
3. Vestibular dysfunction
4. Medication noncompliance
5. Orthostatic hypotension
6. Inner ear infection
7. Dehydration
8. Migrainous vertigo
9. Cardiac arrhythmia exacerbation
10. Neurological causes due to vascular dementia exacerbation
EKG
My independent EKG interpretation is:
- Rhythm: Atrial fibrillation with premature ventricular complexes
- Heart Rate: 87 bpm
- QRS Duration: Normal
- Abnormalities: Premature ventricular complexes
Disposition:
SUMMARY OF ENCOUNTER
The patient, a 79-year-old male, presented to the emergency department with complaints of dizziness and a sensation of spinning in the head without any room spinning. This dizziness is concerning, especially given his past medical history, including
vascular dementia, atrial fibrillation, and anticoagulation with apixaban (Eliquis), though he missed his dose this morning. A family member expressed concern about a potential stroke, given his symptoms. A CT scan of the head was obtained, which I
independently interpreted as showing no acute findings. The differential diagnosis included transient ischemic attack (TIA), stroke, vertigo, vestibular dysfunction, and exacerbation due to his underlying conditions.
DISPOSITION
Admit to hospitalist for further workup to evaluate the possibility of TIA, stroke (CVA), or vertigo.
ASSESSMENT
The patient�s dizziness is being evaluated as a TIA or vertigo among other potential causes, with consideration given to his atrial fibrillation and anticoagulation status.
PLAN
The plan includes hospital admission for further evaluation and management by the hospitalist team. Further workup and monitoring in the hospital setting will be needed to differentiate between TIA, CVA, vertigo, or other possible causes of
dizziness.
INDEPENDENT REVIEW OF LABS AND INTERPRETATION OF TESTS
- My independent interpretation of the CT head scan indicates no acute findings.
MEDICAL DECISION MAKING
- Complexity of Data Reviewed: Chronic conditions affecting care include vascular dementia, atrial fibrillation, and missed anticoagulation medication dose. Differential diagnosis considered: transient ischemic attack, stroke, vestibular
dysfunction, medication noncompliance, orthostatic hypotension, inner ear infection, dehydration, migrainous vertigo, cardiac arrhythmia exacerbation, neurological causes due to vascular dementia exacerbation.
- Data:
Category 1: Tests and documents: Reviewed the CT head for acute findings.
Category 2: Assessment requiring an independent historian: Input from a family member provided additional context for the potential of stroke symptoms.
- Risk:
Given the complexity and the potential for serious underlying causes, admission for further evaluation and workup in the hospital was deemed necessary.
Past History
Past History
ED Past Medical History: HTN
ED Past Surgical History: Appendectomy and Orthopedic
Social History
Tobacco: Non-smoker
Alcohol: None
Drug: None
Personal:
Living: with family
Phy Exam
Physical Exam
Physical Exam:
,
Scores
NIH Stroke Score
Level of Consciousness: 0 - Alert
LOC Questions: 0-Answers both correctly
LOC Commands: 0-Performs both correctly
Best Horizontal Gaze: 0-Normal
Visual Sanz: 0=Normal, no visual loss
Facial Palsy: 0=Normal, symmetrical
Motor - Right Arm: 0=No drift 10 seconds
Motor - Left Arm: 0=No drift 10 seconds
Motor - Right Le-No drift 5 seconds
Motor - Left Le-No drift 5 seconds
Limb Ataxia: 0-Absent
Sensation: 0-Normal
Best Language: 0-No aphasia
Dysarthria: 0-Normal
Extinction and Inattention: 0-No abnormality
NIH Total Score:: 0
Course
Orders/Labs/Results
Orders:
Orders
02/04/25 Breakfast
Sodium, 2 Gram
At Your Request: Full Participation
Does patient need a safe tray?: No
Reason for opting out of Sharepoint Trainer order writing: Provider Decision
02/04/25 12:08
EKG [Electrocardiogram (*1)] Urgent
Reason for Study: Vertigo / Dizzy
EKG- Treatment ONCE
02/04/25 12:34
Complete Blood Count/With Diff Urgent
Comprehensive Metabolic Panel Urgent
Troponin I Urgent
02/04/25 14:06
CT Head W/o Iv Contrast Urgent
Comment:
Reason For Exam: dizziness
02/04/25 16:58
Admit/Transfer Patient As Directed
Co-Sign Provider:
Level of Care: Observation services
Assign to:: Telemetry
Physician / Group: Merrilly
Diagnosis: Dizziness
Reason for Telemetry: Arrhythmia
Date to Stop Telemetry: 02/07/25
Time to Stop Telemetry: 11:00
PRN Pain Medication Management As Directed
May give lesser potent ordered pain med per pt: Yes
preference::
Protocol:: Medication orders for pain may be administered in a
manner that supports deferring to patient preference
when the pt is:
- Requesting an ordered lesser potent pain medication.
Least to most potent pain medications are defined
as: acetaminophen < NSAID < tramadol < opioids
(morphine, oxycodone, hydromorphone).
- Requesting a lesser dose of the same medication IF
ORDERED.
- Requesting a less intrusive route of administration
if both routes are prescribed by the provider (PO <
IV).
02/04/25 17:00
Code Status As Directed
Resuscitation Status: Full Code
02/04/25 18:48
Acetaminophen [Tylenol] 650 mg PO Q4HPRN PRN
diazePAM [Valium Injection] 5 mg IV ONCE ONE
02/04/25 18:48
NEUROLOGY CONSULT Routine
Consulting Provider: Campos Pardo
Was physician already notified: Yes
Activity As Directed
Activity Level: Out of Bed-Early Mobility
With Assistance
Orthostatic Vital Signs As Directed
Orthostatic VS Frequency: BID
Vital Signs As Directed
Frequency: Per unit guidelines
Ot Eval And Treat Routine
Pt Eval And Treat Routine
Activity Level: Out of Bed-Early Mobility
Speech Therapy Eval & Treat Routine
Treatment: cognitive eval - BCAT / MOCA
02/04/25 19:00
Metoprolol Xl [Toprol Xl] 50 mg PO QPM
02/04/25 20:00
Apixaban [Eliquis] 5 mg PO BID
02/05/25 06:23
Basic Metabolic Panel IN AM
Complete Blood Count/No Diff IN AM
Hgba1c [Glycohemoglobin (HgbA1c)] IN AM
Lipid Profile [Cardiovascular Evaluation] IN AM
Magnesium IN AM
02/05/25 08:00
Sertraline HCl [Zoloft] 25 mg PO DAILY
02/07/25 11:00
DC Protocol for Telemetry ONCE
Abnormal Lab Results
02/04/25
12:34
MCV 97.6 H fL
(80.0-94.0)
MCH 33.5 H pg
(27.0-31.0)
Sodium 133 L mmol/L
(135-145)
Creatinine 0.6 L mg/dL
(0.7-1.3)
Glucose 128 H mg/dl
(70-99)
02/04/25 12:34
02/04/25 12:34
Vital Signs
Initial and Last Documented VS:
Initial Vital Signs
Temp Pulse Resp BP Pulse Ox
98.0 F 94 16 132/78 98
02/04/25 12:21 02/04/25 12:21 02/04/25 12:21 02/04/25 12:21 02/04/25 12:21
Last Documented Vital Signs
Temp Pulse Resp BP Pulse Ox
97.5 F 92 16 104/70 95
02/06/25 11:30 02/06/25 11:30 02/06/25 11:30 02/06/25 11:30 02/06/25 11:30
*Pulse Oximetry
SaO2: 95
Oxygen Mode of Delivery: Room air
Patient hypoxic: no
*Critical Care Note
Total Time (30-74mins, 75-104mins- exclusive of procedures): Not Applicable
ED Attending Note
ED Attending Note
Patient seen and examined by attending physician: Yes
-
Portions of this chart may have been created with voice recognition software.� Occasional wrong word or��sound alike� substitutions may have occurred due to the inherent limitations of voice recognition software.
Discharge Plan
Departure
Patient Disposition: Admit
Date of Disposition: 02/04/25
Time of Disposition: 16:09
Admit to: Telemetry
Presentation/result/management discussed w/ accepting MD/DO: Hospitalist
Patient with high blood pressure during this ER visit?: Yes
Condition: Fair
Discharge Problem:
Dizziness, Atrial fibrillation, TIA (transient ischemic attack)
Interventions
Interventions:
*Risk Screen - Suicide Last Done: 02/04/25 18:32
*General Assessment Last Done: 02/04/25 12:21
*Neglect/Abuse Screening Last Done: 02/04/25 12:21
*ED- Fall Risk Assessment Last Done: 02/04/25 12:21
*ED COVID-19 Vaccine History Last Done: 02/04/25 18:32
*ED Influenza Vaccine History Last Done: 02/04/25 12:52
*Nursing Disposition Last Done: 02/04/25 17:51
ED- Neurological Assessment Last Done: 02/04/25 12:52
ED- Cardiac Assessment Last Done: 02/04/25 12:59
ED Swallowing Screen Last Done: 02/04/25 13:48
Discharge Date and Time
Discharge Date/Time: 02/04/25 18:24
--- NOTE | 2025-02-04 16:41 | HPS.HSE ---
Family Physician
-
Family Physician: Erika Trinidad MD
Chief Complaint
-
Dizziness
History of Present Illness
Patient is a 79 y/o male past medical history of traumatic subarachnoid hemorrhage, paroxysmal atrial fibrillation, hypertension, hyperlipidemia, depression, cognitive impairment, depression and peripheral neuropathy who presents with dizziness.
Patient reports acute onset of dizziness while standing in the kitchen. He had to grab onto the counter as he felt as though he may fall. He was able to get a chair to sit, and notes the symptoms quickly passed. He denies any symptoms at present
time. He denies any similar episodes in the past.
Medical History
Past Medical History
Past Medical History: Reports Other
Additional Past Medical History:
Traumatic Subarachnoid Hemorrhage
Paroxysmal Atrial Fibrillation s/p PVI Ablation
Essential Hypertension
Hyperlipidemia
Cognitive Impairment
Depression
Peripheral Neuropathy
Past Surgical History: Reports Other
Additional Past Surgical History:
Knee Surgery
Appendectomy
Social History
Tobacco: Former Smoker (Quit over 40 years ago)
Alcohol: Former (Patient reports prior heavy alcohol use, but report very rare alcohol consumption currently)
Family History
Family History: Not pertinent
Allergies / Home Medications
Allergies reflects when Allergies were last updated in [facility].
Home Medications with original date entered in [facility]
Allergy/Medication List:
Allergies
Allergy/AdvReac Type Severity Reaction Status Date / Time
No Known Allergies Allergy Verified 02/04/25 12:26
Home Medications
apixaban 5 mg tablet (Eliquis) 5 mg PO BID Blood Clot Prevention/Tx 07/18/24
dorzolamide-timolol (PF) 2 %-0.5 % eye drops in a dropperette 1 drp BOTH EYES BID Eye Condition 07/18/24
gabapentin 100 mg tablet 100 mg PO TIDPRN PRN mild pain 07/27/24
acetaminophen 500 mg tablet (Tylenol Extra Strength) 1,000 mg PO HS mild pain 02/04/25
metoprolol succinate 50 mg tablet,extended release 24 hr (Toprol XL) 50 mg PO QPM Heart Disease/Condition 02/04/25
sertraline 25 mg tablet 25 mg PO DAILY Mental Health/Anxiety 02/04/25
therapeutic multivitamin 5 ml PO DAILY Supplement 02/04/25
Review of Systems
-
History Source: Patient
A 12 point ROS was completed and negative except as noted: Yes
Constitutional: Denies Fever or Chills
Respiratory: Denies Cough or Trouble Breathing
Cardiac: Denies Chest Pain or Palpitations
Physical Exam
Vital Signs
Vital Signs
Temp Pulse Resp BP Pulse Ox
98.0 F 104 16 117/81 94
02/04/25 12:21 02/04/25 16:19 02/04/25 16:22 02/04/25 16:18 02/04/25 16:22
Physical Exam
General: Comfortable and Conversant
HEENT: Anicteric, Moist mucous membranes, PERRLA and Other (EOMI with no nystagmus)
Respiratory: Clear and Non Labored Respirations
Cardiac: S1/S2 and Irregular Rhythm; No Tachycardia
GI: Soft and Non Tender
Rectal: Deferred by Provider
Genito-urinary: Clear Urine
Musculoskeletal: No Clubbing, No Cyanosis and No Edema
Skin: Warm and Dry
Neuro: Awake, Alert, Oriented and No Motor Deficits
Psych: Calm
Laboratory Results
-
02/04/25 12:34
02/04/25 12:34
Laboratory Results
Total Bilirubin 0.7 mg/dl (0.2-1.3) 02/04/25 12:34
AST 27 U/L (17-59) 02/04/25 12:34
ALT 29 U/L (0-50) 02/04/25 12:34
Alkaline Phosphatase 78 U/L (38-126) 02/04/25 12:34
Troponin I 0.015 ng/ml 02/04/25 12:34
Data Reviewed
-
CT Scan: Report Reviewed by me
Lab Data: Labs Reviewed by me
Old Records: Reviewed
Impression/Plan
-
Dizziness, low suspicion for acute stroke, possibly TIA vs BPPV vs orthostasis
-Consult Neurology
-Check Brain MRI
-Check orthostatic VS
-Continue Eliquis
Paroxysmal Atrial Fibrillation
-Patient currently in a rate controlled atrial fibrillation, possibly contributing to patient's dizziness symptoms
-Monitor on Telemetry
-Continue Eliquis for anticoagulation
-Continue metoprolol for rate control
-Consider Cardiology consult
Depression
-Continue Sertraline
Cognitive Impairment
-Some outpatient notes indicate vascular dementia
-Monitor for mood/behavior changes
DVT proph: Eliquis
Code Status: Full Code
--- NOTE | 2025-02-04 17:02 | W.PN.UPDATE ---
Update Note
Progress Note Update
This note serves as an addendum to the H&P by manager coding SARKIS�
Evelyn DIETERICK
HPI
79F M HX cognitive disorder( Vascular ? ) HX Prx AF on Eliquis, HTN seen at ER:
- feeling unsteadiness episode
- unlike vertiginous symptoms
- felt like falling
- NIH zero on arrival to ER
EKG is in Prx AF with control VR
Relevant VS:
Temp Pulse Resp BP Pulse Ox
98.0 F 104 16 117/81 94
02/04/25 12:21 02/04/25 16:19 02/04/25 16:22 02/04/25 16:18 02/04/25 16:22
PE
Gen: NAD
HEENT:anicteric
Neck: supple
Lungs:CTA
Cor: irregular HR low 100s
Abdomen:�benign
ORDER MAKE UP CLERK: AAO3 NFND
MS: no edema
Relevant Data
02/04/25
12:34
WBC 7.0
Hgb 16.8
Plt Count 165
Sodium 133 L
Chloride 105
Creatinine 0.6 L
eGFR > 60.00
HCT
No evidence of acute intracranial abnormality.
EKG
ATRIAL FIBRILLATION WITH PREMATURE VENTRICULAR OR ABERRANTLY CONDUCTED
COMPLEXES
ABNORMAL ECG
WHEN COMPARED WITH ECG OF 03-Aug-2024 06:49,
ATRIAL FIBRILLATION HAS REPLACED SINUS RHYTHM
Confirmed by EUSEBIO JIMENEZ MD ([id number]) on 02/04/2025 12:43:12 PM
07/27/24 TTE
Normal left ventricular chamber size.
Low normal left ventricular systolic function is 50%.
Normal right ventricular size and function.
Mildly dilated left atrium.
Mildly dilated right atrium.
Left atrial appendage is normal in size. Spontaneous echo contrast seen in the
left atrial appendage. No thrombus detected in the left atrial appendage.
Thickened mitral valve leaflets. Mild to moderate mitral regurgitation.
Mild to moderate aortic regurgitation.
Ok for ablation
ASSESSMENT & PLAN
Pending Rx reconciliation
Abrupt onset of Dizziness and completely resolved : TIA vs. BPPV
HX Prx AF
- NEG HCT
- Initial NIH zero
- On Eliquis
- Fall precaution
Brain MRI in AM
- Neuro consulted
HX Claustrophobia with MRI
- to premedicate with IV Valium before MRI tomorrow
Prior HX low normal LVEF 50%
Prx AF with control VR
- c/w CURRICULUM DEVELOPMENT SPECIALIST Eliquis
- c/w Metoprol succinate
DVT Px: CURRICULUM DEVELOPMENT SPECIALIST Eliquis
Full code
OBS TLM
[2025-02-04] MEDS: TYLENOL 650 MG PO (19:45)
[2025-02-04] MEDS: ELIQUIS 5 MG PO (19:45)
[2025-02-04] MEDS: TOPROL XL 50 MG PO (19:46)
[2025-02-04] MEDS: TRUSOPT 2% OPHTHALMIC SOLUTION 1 DROP BOTH EYES (22:04)
[2025-02-04] MEDS: TIMOPTIC 0.5% OPHTHALMIC SOLUTION 1 DROP BOTH EYES (22:04)
[2025-02-05] VITALS (9 sets, daily range): BP systolic 104–154; BP diastolic 55–93; PULSE 74–111; O2SAT 97; BMI 25.6
[2025-02-05] MEDS: TYLENOL 650 MG PO ×3 (04:11→22:16)
[2025-02-05 06:57] LABS: Hematocrit 47.5 % (39.0-52.0); Hemoglobin 16.6 g/dL (13.0-18.0); Mean Corp Hgb Conc. 34.9 g/dL (33.0-37.0); Mean Corpuscular Volume 97.1 fL (80.0-94.0); Platelet Count 162 10^3/uL (130-400); Red Cell Dist. Width 13.2 % (11.5-14.5)
[2025-02-05 07:11] LABS: Blood Urea Nitrogen 11 mg/dl (9-20); Calcium 9.2 mg/dl (8.4-10.2); Carbon Dioxide 28 mmol/L (22-30); Chloride 104 mmol/L (98-107); Estimated Creatinine Clearance 105 ml/min; Glucose 102 mg/dl (70-99); HDL Cholesterol 42 mg/dl; LDL Cholesterol, Calculated 99 mg/dl; Magnesium 2.0 mg/dl (1.6-2.3); Potassium 4.2 mmol/L (3.5-5.1); Sodium 138 mmol/L (135-145); Very Low Density Lipoprotein 22 mg/dl (0-30); eGFR > 60.00
[2025-02-05] MEDS: VALIUM INJECTION 5 MG IV (07:47)
[2025-02-05] MEDS: ELIQUIS 5 MG PO ×2 (07:48→19:50)
[2025-02-05] MEDS: TIMOPTIC 0.5% OPHTHALMIC SOLUTION 1 DROP BOTH EYES ×2 (07:48→22:17)
[2025-02-05] MEDS: ZOLOFT 25 MG PO (07:48)
[2025-02-05] MEDS: TRUSOPT 2% OPHTHALMIC SOLUTION 1 DROP BOTH EYES ×2 (07:48→22:16)
[2025-02-05 07:57] LABS: Glycohemoglobin (HgbA1c) 5.4 % (4.0-5.9)
[2025-02-05 08:00] LABS: Hepatitis C Antibody Negative (Negative)
--- NOTE | 2025-02-05 09:10 | PTOTSP ---
Speech Language Pathology
Pt seen for cognitive-linguistic evaluation via the [place] Cognitive Assessment (MOCA-BLIND), version 8.1. This version provided as pt reported poor eyesight and inability to see visuospatial tasks on regular MOCA. Pt with an overall score of
02/16 where normal range is 18-22. Pt with mild-mod cognitive deficits. Pt received Valium this morning prior to MRI, so this may be affecting current score. Pt stated his does not feel his cognition is different than at baseline. He feels he
does not have cognitive difficulties at home, but he said 'my would probably say yes.' Will continue to follow pending workup.
--- NOTE | 2025-02-05 09:50 | CON.NEURO4 ---
Addendum entered and electronically signed by Campos Pardo MD 02/05/25 20:21:
I saw and examined the patient today along with the nurse practitioner Maureen Mandel and I agree with her assessment and management plan. Given below is my addendum.
The patient is a 79 years old male who presented to the hospital on 02/04/2025 with a complaint of dizziness. The patient has a history of atrial fibrillation for which he is on apixaban.
Neurologic Examination:
The patient is alert and oriented x 3,
Speech is clear,
The cranial nerves II to XII are grossly intact,
The patient has antigravity strength in bilateral upper and lower extremities,
The sensations are grossly intact,
There was no limb ataxia seen.
ASSESSMENT AND PLAN:
The patient presented with complaint of dizziness.
The orthostats were positive.
The MRI of the brain did not show an acute infarction.
The CTA of the head and neck shows 85% stenosis of the right carotid bulb. However the carotid duplex shows less than 50% internal carotid artery stenosis bilaterally. The patient has been seen by vascular surgery.
The patient has a history of atrial fibrillation for which he is on apixaban. The patient also needs to be on atorvastatin 40 mg daily.
According to the patient's the patient has issues with memory impairment which have become significant for last about 8 months.
Follow-up with neurology as an outpatient.
Will sign off. Please call if you have any question.
Original Note:
Consultation - Neurology 4
-
CONSULTING PHYSICIAN: Campos Pardo MD
REFERRING PHYSICIAN: Hospitalists/Joceline Paul PA-C
DICTATED BY: ALONSO Ibarra
DATE/TIME OF REQUEST: 02/04/25
DATE/TIME OF CONSULTATION: 02/05/25
Reason for Consultation: Dizziness
History of Present Illness:
This is a 79-year-old male who has presented to the hospital on 02/04/25 with report of dizziness. Patient sustained a fall with head injury in July 2024 on apixaban for Afib. He was hospitalized at [facility] following this event for a
traumatic subarachnoid hemorrhage. Follow-up CT head imaging was stable and he ultimately resumed his apixaban. He had been previously drinking heavily leading up to that fall, and his reports that he drastically cut down on drinking in August
after the fall. She also notes about an 8 month history of significant memory issues, he has yet to see a neurologist. He does not drive at baseline due to severe glaucoma.
Patient is a poor historian and most of this information is from his at bedside. Yesterday (02/04/25), while standing in the kitchen he suddenly reported feeling dizzy which he described as unsteady with a spinning sensation. He had to hold
onto the counter to avoid falling. CT head was obtained on arrival and is negative for any acute abnormalities. NIHSS was 0. He was not a candidate for TNK/IAT due to NIHSS 0. His notes that at baseline he does have balance issues and
intermittently has dizziness at baseline. He denies any headache, vision changes, speech/swallowing difficulty, focal numbness, and weakness. He has not missed any doses of his apixaban.
Past Medical History: Paroxysmal Afib s/p PVI ablation (apixaban), traumatic subarachnoid hemorrhage 07/2024, HTN, HLD, cognitive impairment, peripheral neuropathy, depression, chronic daily alcohol, glaucoma.
Surgical History: Appendectomy, knee surgery.
Family History: Reviewed and noncontributory.
Social History: Former heavy alcohol usage, reduced intake 08/2024. Former smoker. No illicit drug use.
Allergies: No known allergies.
Home Medications: See below.
Review of Symptoms:
Patient denies any fever, headache, chest pain, shortness of breath, GI or symptoms.
�Per the HPI.�All systems are reviewed negative except above.
Physical Exam:
The patient is afebrile, abdomen is nondistended, breathing is unlabored, skin is warm and dry, no edema.
NIH Stroke Scale:
I performed the NIH stroke scale on the patient on 02/05/25 at 1030. The patient scored 0 points on the NIH stroke scale assessment, which were assigned as follows: See below.
Neurologic Examination:
The patient is awake, alert and oriented to person, place, and year. President- [place]. He is able to follow commands and answer questions appropriately. There is no aphasia or dysarthria. On cranial nerve assessment, pupils are 3 mm
bilateral, round and reactive to light and accommodation. Visual sanz are full. Extraocular movements are intact. Facial sensations are intact and bilaterally symmetrical, there is no facial asymmetry. Hearing is diminished bilaterally to normal
conversation volume. Tongue palate and uvula are midline. Sternocleidomastoid strengths are full bilaterally. Motor strengths are 5/5 bilateral upper and lower extremities on medical research Pauma scale. There is no drift or involuntary movement
noted. Deep tendon reflexes are 2+ bilateral upper and lower extremities and Babinski is absent bilaterally. There was no extinction noted on double simultaneous stimulation. Coordination is intact by finger to nose bilaterally.
Lab Results: See below.
Neuro Imaging:
1. CT head 02/04/25: No evidence of acute intracranial abnormality.
2. CTA head/neck 02/05/25: No evidence for high-grade stenosis or occlusion in the [place]. 85% stenosis of the right carotid bulb. Less than 50% stenosis of the left carotid bulb. Hypoplastic right vertebral artery with a very small
caliber intradural segment distal to the right PICA, which may be secondary to atherosclerotic stenosis versus congenital hypoplasia.
3. Carotid ultrasound 02/05/25: Mild calcified plaque is identified bilaterally. Carotid velocity measurements bilaterally are consistent with less than 50% internal carotid artery stenosis. Vertebral artery flow is antegrade bilaterally however a
high resistance waveform is seen on the right suggesting the possibility of more distal occlusive disease.
4. MRI brain 02/05/25: OCCLUSION of the intradural segment of the RIGHT VERTEBRAL ARTERY. Moderate white matter leukoaraiosis in the frontal and parietal lobes. Mild to moderate diffuse cerebral and cerebellar volume loss. ACUTE LEFT FRONTAL,
MAXILLARY, and ETHMOID AIR CELL SINUSITIS. Small cervical disc herniations causing mild spinal cord compression.
Differentials for the patient's presentation include:
1. Transient dizziness; etiology is likely orthostatic hypotension given positive orthostatic vital signs. MRI brain is negative for stroke.
2. CTA head/neck is suggestive of R ICA 85% stenosis, not confirmed on carotid ultrasound.
3. Progressive memory issues and gait dysfunction in the setting of previous heavy alcohol usage.
Patient has the following risk factors for their symptoms: Afib, age, +orthostatic vital signs
IV Tenecteplase/IAT candidacy: He was not a candidate for TNK/IAT due to NIHSS 0.
Recommendations:
-Continue home apixaban.
-Goal normotension.
-Abdominal binder when OOB for orthostasis. Increase water intake. Slow position changes.
-Provide patient with a stroke education packet.
-Outpatient neuropsychological testing.
-Initiate thiamine 100mg daily due to heavy alcohol usage.
-PT/OT evaluations.
-Follow-up with Vacular Surgery as an outpatient regarding R ICA possible stenosis.
-Follow-up with Neurology as an outpatient.
Discussed patient care with: Dr. Pardo, the patient
Vital Signs and Labs
-
Vital Signs and Labs:
Vital Signs
Temp Pulse Resp BP Pulse Ox
97.5 F 88 16 113/83 96
02/05/25 07:30 02/05/25 07:30 02/05/25 07:30 02/05/25 07:30 02/05/25 07:30
Lab Results
02/05/25 06:23
02/05/25 06:23
Sodium 138 mmol/L (135-145) 02/05/25 06:23
Potassium 4.2 mmol/L (3.5-5.1) 02/05/25 06:23
BUN 11 mg/dl (9-20) 02/05/25 06:23
Glucose 102 mg/dl (70-99) H 02/05/25 06:23
Calcium 9.2 mg/dl (8.4-10.2) 02/05/25 06:23
LDL Cholesterol, Calc 99 mg/dl 02/05/25 06:23
Medications
-
Active Medications
Generic Name Dose Route Start Last Admin
Trade Name Freq PRN Reason Stop Dose Admin
Acetaminophen 650 mg 02/04/25 18:48 02/05/25 04:11
Acetaminophen 325 Mg Tablet PO 03/04/25 18:47 650 mg
Q4HPRN PRN Administration
mild pain/ fever>100.5F
Apixaban 5 mg 02/04/25 20:00 02/05/25 07:48
Apixaban (Eliquis) 5 Mg Tablet PO 03/04/25 19:59 5 mg
BID YESSICA Administration
Artificial Tears 1 drops 02/04/25 21:44
Artificial Tears Pf (Refresh) 10 Drop Droperette BOTH EYES 03/04/25 21:43
QIDPRN PRN
dry eyes
Dorzolamide HCl 0 drop 02/04/25 23:00 02/05/25 07:48
Dorzolamide 2% (Ophthalmic Solution) 10 Ml Bottle BOTH EYES 03/04/25 22:59 1 drop
BID YESSICA Administration
Metoprolol Succinate 50 mg 02/04/25 19:00 02/04/25 19:46
Metoprolol 50 Mg Extended Release Tablet PO 03/04/25 18:59 50 mg
QPM YESSICA Administration
Sertraline HCl 25 mg 02/05/25 08:00 02/05/25 07:48
Sertraline 25 Mg Tablet PO 03/05/25 07:59 25 mg
DAILY YESSICA Administration
Timolol Maleate 0 drop 02/04/25 23:00 02/05/25 07:48
Timolol 0.5% (Ophthalmic Solution) Bottle BOTH EYES 03/04/25 22:59 1 drop
BID YESSICA Administration
Home Medications
�Medication �Instructions �Recorded
apixaban 5 mg tablet (Eliquis) 5 mg PO BID Blood Clot 07/18/24
Prevention/Tx
dorzolamide-timolol (PF) 2 %-0.5 % 1 drp BOTH EYES BID Eye Condition 07/18/24
eye drops in a dropperette
gabapentin 100 mg tablet 100 mg PO TIDPRN PRN mild pain 07/27/24
acetaminophen 500 mg tablet 1,000 mg PO HS mild pain 02/04/25
(Tylenol Extra Strength)
metoprolol succinate 50 mg 50 mg PO QPM Heart 02/04/25
tablet,extended release 24 hr Disease/Condition
(Toprol XL)
sertraline 25 mg tablet 25 mg PO DAILY Mental 02/04/25
Health/Anxiety
therapeutic multivitamin 5 ml PO DAILY Supplement 02/04/25
NIH Stroke Score
Subsequent NIH Scale
Date of Subsequent NIH Scale: 02/05/25
Time of Subsequent NIH Scale: 10:30
NIH Stroke Score
Level of Consciousness: 0 - Alert
LOC Questions: 0-Answers both correctly
LOC Commands: 0-Performs both correctly
Best Horizontal Gaze: 0-Normal
Visual Sanz: 0=Normal, no visual loss
Facial Palsy: 0=Normal, symmetrical
Motor - Right Arm: 0=No drift 10 seconds
Motor - Left Arm: 0=No drift 10 seconds
Motor - Right Le-No drift 5 seconds
Motor - Left Le-No drift 5 seconds
Limb Ataxia: 0-Absent
Sensation: 0-Normal
Best Language: 0-No aphasia
Dysarthria: 0-Normal
Extinction and Inattention: 0-No abnormality
NIH Total Score:: 0
Modified Whitmore (mRS) Score
Modified Whitmore Scale (mRS): No symptoms
Score: 0
Alteplase Contraindication
Inclusion and Exclusion criteria reviewed: Yes
IAT Contraindications: NIHSS < 6 and Imaging doesn't show large vessel occlusion as cause of stroke
--- NOTE | 2025-02-05 12:25 | W.PN.HOSP.TC ---
Today's Communication/Plan
-
see note
Assessment / Plan
Assessment / Plan
CTA h&n
No evidence for high-grade stenosis or occlusion in the [place].
85% stenosis of the right carotid bulb.
Less than 50% stenosis of the left carotid bulb.
Hypoplastic right vertebral artery with a very small caliber intradural segment distal to the right PICA, which may be secondary to atherosclerotic stenosis versus congenital hypoplasia.

1. Dizziness
Orthostatic hypotension
Right vertebral artery/cartoid occlusion
-Patient have episodes of dizziness and might be multifactorial from orthostatic hypotension and decreased blood flow through right carotid/right vertebral artery
-Compression stockings provided
-CTA head and neck report as above
-Brain MRI did not show any new stroke
-Vascular surgery consultation requested
2. Paroxysmal Atrial Fibrillation
-Patient currently in a rate controlled atrial fibrillation, possibly contributing to patient's dizziness symptoms
-Continue Eliquis for anticoagulation
-Continue metoprolol for rate control
-Consider Cardiology consult
3. Depression
-Continue Sertraline
4. Cognitive Impairment
History of subarachnoid hemorrhage
-Some outpatient notes indicate vascular dementia
-Monitor for mood/behavior changes
DVT proph: Eliquis
Code Status: Full Code
Care plan discussed with neurology
Care plan discussed with spouse at bedside
Anticipated Discharge: 24 - 48 hours
Subjective/Interval History
-
Date of Service: February 05, 2025
Denies having any issues overnight
No episode of syncope
Objective Data
-
Labs:
Laboratory Results
02/05/25
06:23
WBC 7.2
Hgb 16.6
Hct 47.5
Plt Count 162
Sodium 138
Potassium 4.2
Chloride 104
Carbon Dioxide 28
BUN 11
Creatinine 0.7
Glucose 102 H
Calcium 9.2
Vital Signs:
Vital Signs
Temp Pulse Resp BP Pulse Ox
97.5 F 88 16 113/83 96
02/05/25 07:30 02/05/25 07:30 02/05/25 07:30 02/05/25 07:30 02/05/25 07:30
I&O
02/04/25 02/05/25 02/06/25
06:59 06:59 06:59
Intake Total 1680 / 1680
Output Total 975 / 975
Balance 705 / 705
Review of Systems
-
Respiratory: Reports No Symptoms
Cardiac: Reports No Symptoms
Abdomen/GI: Reports No Symptoms
Physical Exam
-
General: Comfortable
HEENT: Negative Oxygen
Respiratory: Clear to Auscultation
Cardiac: Regular Rhythm and S1/S2; Negative Murmur or Rub
Musculoskeletal: No Edema
Neuro: Awake, Alert, Oriented, No Motor Deficits and Nonfocal/Grossly Intact
Psych: Calm
--- NOTE | 2025-02-05 12:31 | CON.VAS ---
Addendum entered and electronically signed by Clark Fisher III, MD 02/05/25 13:31:
This patient was seen and examined in collaboration with katie. I agree with the history and physical exam as well as the assessment and plan. I have the following additions:
79-year-old male who presents with single episode of dizziness which resolved quickly
Specifically denies slurred speech, facial droop, monocular vision loss, asymmetric upper/lower extremity weakness or numbness. Denies recent stroke or TIA.
On physical exam he is well-appearing and in no acute distress
at bedside
Grossly nonfocal neuro exam
I personally reviewed his carotid duplex. The velocity profiles bilaterally are consistent with less than 50% internal carotid artery stenosis.
I personally reviewed the CTA head and neck and performed centerline reconstructions (see below). I disagree with the radiology report but there is an 85% internal carotid artery stenosis. There is soft and calcified plaque in the right internal
carotid artery but by my direct centerline reconstruction measurements the degree of stenosis was more consistent with 50%. There is no significant stenosis on the left. The intracranial right vertebral artery appears to be highly stenotic or
occluded.
I reviewed the MRI brain report showing no evidence of acute infarction.
He has an asymptomatic right carotid artery stenosis. He is on anticoagulation for Afib. Should be on a statin with aggressive LDL target. Followup with me in the office after DC to continue carotid surveillance.
Call with questions/concerns.
Signed:
Clark Fisher III, MD
Vascular Surgery
[facility]
Original Note:
Consultation
Consultation Request
Date/Time Consultation Performed: 02/05/2025 12:15
Performing Provider: Phillip
Reason for Consultation: Dizziness/carotid stenosis
Medical History
-
Chief Complaint: Dizziness
History of Present Illness:
79-year-old male with past medical history significant for subarachnoid hemorrhage in August 2024, cognitive impairment, A-fib on Eliquis, hypertension, hyperlipidemia, depression, peripheral neuropathy presented to the emergency room yesterday
afternoon for dizziness. Patient had been standing in his kitchen when he had a sudden onset of dizziness. He was able to grab the counter and get himself to a chair. He states the dizziness resolved quickly and has not had another episode since.
Patient admitted for workup.
Brain MRI: negative.
CT head and neck : No evidence for high-grade stenosis or occlusion in the [place]. 85% stenosis of the right carotid bulb. Less than 50% stenosis of the left carotid bulb. Hypoplastic right vertebral artery with a very small caliber
intradural segment distal to the right PICA, which may be secondary to atherosclerotic stenosis versus congenital hypoplasia.
Carotid ultrasound: Mild calcified plaque is identified bilaterally. Carotid velocity measurements bilaterally are consistent with less than 50% internal carotid artery stenosis. Vertebral artery flow is antegrade bilaterally however a high
resistance waveform is seen on the right suggesting the possibility of more distal occlusive disease.
Patient seen at bedside this afternoon with Dr. Fisher. Patient's present for exam as well. Patient denies any other strokelike symptoms. Denies sudden loss of vision. Patient's admits patient has macular degeneration. Patient has
equal strength bilaterally. Speech is clear, denies issues with his words.
Past Medical History
Past Medical History: Other (See above)
Past Surgical History: Appendectomy
Social History
Tobacco: Former Smoker
Alcohol: Former
Personal:
Living: With Family
Family History
Family History: Reviewed & Not Pertinent
Allergies / Home Medications
Allergy/AdvReac Type Severity Reaction Status Date / Time
No Known Allergies Allergy Verified 02/04/25 12:26
�Medication �Instructions �Recorded �Confirmed �Type
apixaban 5 mg tablet (Eliquis) 5 mg PO BID Blood Clot 07/18/24 02/04/25 History
Prevention/Tx
dorzolamide-timolol (PF) 2 %-0.5 % 1 drp BOTH EYES BID Eye Condition 07/18/24 02/04/25 History
eye drops in a dropperette
gabapentin 100 mg tablet 100 mg PO TIDPRN PRN mild pain 07/27/24 02/04/25 History
acetaminophen 500 mg tablet 1,000 mg PO HS mild pain 02/04/25 02/04/25 History
(Tylenol Extra Strength)
metoprolol succinate 50 mg 50 mg PO QPM Heart 02/04/25 02/04/25 History
tablet,extended release 24 hr Disease/Condition
(Toprol XL)
sertraline 25 mg tablet 25 mg PO DAILY Mental 02/04/25 02/04/25 History
Health/Anxiety
therapeutic multivitamin 5 ml PO DAILY Supplement 02/04/25 02/04/25 History
Review of Systems
-
History Source: Patient and Family
All other systems: Negative unless noted
Constitutional: Reports No Symptoms
EENT: Reports No Symptoms
Respiratory: Reports No Symptoms
Cardiac: Reports No Symptoms
Vascular: Denies Leg Pain / Claudication
Abdomen/GI: Reports No Symptoms
: Reports No Symptoms
Musculoskeletal: Reports No Symptoms
Skin: Reports No Symptoms
Neurological: Reports Dizzy (Resolved)
Endocrine: Reports No Symptoms
Physical Exam
Vital Signs
Temp Pulse Resp BP Pulse Ox
97.5 F 88 16 113/83 96
02/05/25 07:30 02/05/25 07:30 02/05/25 07:30 02/05/25 07:30 02/05/25 07:30
Lab Results
02/05/25 06:23
02/05/25 06:23
Troponin I 0.015 ng/ml 02/04/25 12:34
Physical Exam
General: No Apparent Distress
HEENT: Normocephalic and Atraumatic
Respiratory: Non Labored Respirations
Cardiac: Negative JVD
GI: Soft and Non Tender
Musculoskeletal: No Clubbing, No Cyanosis and No Edema
Skin: Warm
Neuro: Awake, Alert, Oriented and No Motor Deficits
Psych: Calm
Assessment / Plan
-
79-year-old male admitted for dizziness workup
Plan:
CT reviewed by vascular attending, right carotid stenosis measured at 60%
No vascular intervention required at this time patient will follow-up with us in the office for continued monitoring
Recommend statin therapy, daily aspirin
Seen and assessed with Dr. Fisher
Data Reviewed
-
CT Scan: Discussed with Patient
Ultrasound: Discussed with Patient
Medical Tests (Nuc Med, Echo etc): Discussed with Patient
Labs: Labs Reviewed by me
[2025-02-05] MEDS: VITAMIN B1 100 MG PO (13:47)
[2025-02-05 14:40] LABS: Ferritin 395.0 ng/ml (17.9-464.0)
[2025-02-05 15:12] LABS: Folate 16.0 ng/ml (2.76-20); Vitamin B12 328 pg/ml (239-931)
--- NOTE | 2025-02-05 16:18 | CM ---
IA completed. TALAVERA given and placed on chart. Independent in ADLs and IADLs. Lives with his in a 2 story home and cares for his 2 grandchildren ages 12 and 13. There are 2 steps at the entrance of the home and 13 inside. Full bath is on the 1st
and 2nd floor. No hx of HH, home o2. DME: rolling walker, and white cane for blindness.. There were no insecurities identified.. Hx of SNF in [place]. Confirmed PCP, RX, insurance and drug coverage.
PCP: Erika Trinidad
Rx: [facility]
Plan: Home no needs
[2025-02-05] MEDS: TOPROL XL 50 MG PO (17:02)
--- NOTE | 2025-02-05 18:14 | PTCARENOTE ---
Patient with increased confusion/forgetfulness this evening compared to this AM. Pt repeatedly setting off bed alarm and having confused conversations. Pt easily redirected. Education on use of call giordano and safety performed, pt states understanding
but continues to need reinforcement of teaching. Pt has no complaints at this time, sitting comfortably in chair, chair alarm in place. Call giordano within reach.
[2025-02-06 03:35] VITALS: BP 112/80
[2025-02-06 07:26] LABS: Hematocrit 48.7 % (39.0-52.0); Hemoglobin 16.9 g/dL (13.0-18.0); Mean Corp Hgb Conc. 34.7 g/dL (33.0-37.0); Mean Corpuscular Volume 98.4 fL (80.0-94.0); Platelet Count 160 10^3/uL (130-400); Red Cell Dist. Width 13.2 % (11.5-14.5)
[2025-02-06 07:30] VITALS: BP 130/80
[2025-02-06 08:06] LABS: Blood Urea Nitrogen 14 mg/dl (9-20); Calcium 9.3 mg/dl (8.4-10.2); Carbon Dioxide 29 mmol/L (22-30); Chloride 101 mmol/L (98-107); Estimated Creatinine Clearance 105 ml/min; Glucose 92 mg/dl (70-99); Potassium 4.1 mmol/L (3.5-5.1); Sodium 138 mmol/L (135-145); eGFR > 60.00
[2025-02-06] MEDS: ZOLOFT 25 MG PO (08:56)
[2025-02-06] MEDS: ELIQUIS 5 MG PO (08:56)
[2025-02-06] MEDS: TIMOPTIC 0.5% OPHTHALMIC SOLUTION 1 DROP BOTH EYES (08:57)
[2025-02-06] MEDS: VITAMIN B1 100 MG PO (08:57)
[2025-02-06] MEDS: TYLENOL 650 MG PO (08:59)
[2025-02-06] MEDS: TRUSOPT 2% OPHTHALMIC SOLUTION 1 DROP BOTH EYES (09:01)
[2025-02-06 10:55] VITALS: BP 118/83; BP 125/83; PULSE 91; O2SAT 97
[2025-02-06 11:30] VITALS: BP 100/73; BP 104/70; BP 97/68; PULSE 84; PULSE 92; PULSE 94
--- NOTE | 2025-02-06 12:18 | CM ---
Pt is discharged to home, no needs. 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 wants to speak to both the vascular surgery and neurology before she take the patient home. RN made aware.
--- NOTE | 2025-02-08 08:28 | W.DCSUMMARY ---
Discharge Summary
Discharge Data
Date of Admission: 02/04/25
Date of Discharge: 02/06/25
-
Pending Results: No
Hospital Course
Discharging Physician : Dr Cheo Gregg
Disposition : To home
Primary care physician : Dr Erika Trinidad
Principal Discharge diagnosis :
Dizziness
Orthostatic hypotension
Right vertebral/carotid arterial occlusion
Chronic Discharge diagnosis :
Paroxysmal atrial fibrillation on Eliquis
Depression
History of subarachnoid hemorrhage
History of cognitive impairment
Physical examination
General: Comfortable
HEENT: Negative Oxygen
Respiratory: Clear to Auscultation
Cardiac: Regular Rhythm and S1/S2; Negative Murmur
Musculoskeletal: No Edema
Neuro: Awake, Alert, Oriented, No Motor Deficits and Nonfocal/Grossly Intact
Psych: Calm
Hospital Course :
Patient is 79-year-old male with above-mentioned past medical history came to ER with new onset of dizziness. Patient was mainly standing in the kitchen when episode occurred with patient had to grab a counter to prevent from a fall happening.
Patient sat down quickly and symptoms passed. Patient was brought into ER for further evaluation by spouse. With extensive previous neurological history neurology was involved in care. Patient had a CT head and CTA head and neck in ER with CT
head being negative for any new findings. CTA head and neck showing right carotid bulb 85% stenosis and right vertebral artery occlusion. Brain MRI did not show any new stroke. Vascular surgery was involved for evaluation of carotid artery
stenosis and was recommended to be monitored outpatient with surveillance. Patient home medications were continued as preadmission. Orthostatic vitals were checked and patient was found to be positive with systolic blood pressure dropping to 100
110 range on standing at times. Patient dizziness episode was likely felt to be combination of cranial vasculature narrowing with associated orthostatic hypotension causing dizziness episodes. Compression stockings were used and patient decreased
severity of orthostasis. Patient home dose of Toprol-XL has not been decreased and may be considered to be cut back if needed.
Important imaging findings :
None
Procedure findings :
None
Discharge Plan
-
Patient Disposition: Home (Routine Discharge)
Discharge Diagnosis/Procedures: Dizziness, Right carotid stenosis, Right vertebral artery occlusion, orthostatic hypotension
Condition: Fair
Diet: 2 Gram Sodium
Activity: As tolerated
Driving Restrictions: No driving
Bathing Restrictions: OK to Shower
Activity Restrictions/Additional Instructions:
Please wear compression stockings during day time
Referrals:
Erika Trinidad MD [Family Provider, Family Practice] - in one week
Ashleigh Neumann CRNP [Specified Professional Personl, Vascular Surgery] - 03/06/25 9:00 am
Referral Note: Vascular surgery office follow-up (Dr Fisher's office)
Prescriptions:
Continued
dorzolamide-timolol (PF) 2-0.5 % Dropperette
1 drp BOTH EYES BID
Eliquis 5 mg Tablet
5 mg PO BID
gabapentin 100 mg Tablet
100 mg PO TIDPRN PRN (Reason: mild pain)
acetaminophen [Tylenol Extra Strength] 500 mg Tablet
1,000 mg PO HS
sertraline 25 mg Tablet
25 mg PO DAILY
therapeutic multivitamin Liquid
5 ml PO DAILY
metoprolol succinate [Toprol XL] 50 mg tablet extended release 24 hr
50 mg PO QPM
Discharge Orders:
Discharge Patient (As Directed); Ordered 02/06/25
Ordered By: Cheo Gregg
Discharge Date and Time
Discharge Date/Time: 02/06/25 14:41
Print Language: ALBANIAN
== END 2025-02-06 14:41 | disposition home or self-care (01) ==
LOC: 4 EAST ACU 17:59
PROVIDERS: Physician Assistant Medical; ADMITTING PHYSICIAN Internal Medicine; ATTENDING PHYSICIAN Hospitalist; CONSULT PHYSICIAN Psychiatry & Neurology Neurology; CONSULT PHYSICIAN Surgery Vascular Surgery; EMERGENCY PHYSICIAN Emergency Medicine; FAMILY PHYSICIAN Family Medicine
DX: R42 Dizziness and giddiness (principal); I95.1 Orthostatic hypotension; R26.81 Unsteadiness on feet; F32.A Depression, unspecified; F01.53 Vascular dementia, unspecified severity, with mood disturbance; I48.0 Paroxysmal atrial fibrillation; I10 Essential (primary) hypertension; E78.5 Hyperlipidemia, unspecified; R41.89 Other symptoms and signs involving cognitive functions and awareness; F40.240 Claustrophobia; J01.00 Acute maxillary sinusitis, unspecified; J01.10 Acute frontal sinusitis, unspecified; J01.20 Acute ethmoidal sinusitis, unspecified; I67.81 Acute cerebrovascular insufficiency; I65.01 Occlusion and stenosis of right vertebral artery; H40.9 Unspecified glaucoma; M50.01 Cervical disc disorder with myelopathy, high cervical region; H35.30 Unspecified macular degeneration; I65.23 Occlusion and stenosis of bilateral carotid arteries; Z87.820 Personal history of traumatic brain injury; Z79.01 Long term (current) use of anticoagulants; Z87.891 Personal history of nicotine dependence; Z90.49 Acquired absence of other specified parts of digestive tract; Z86.79 Personal history of other diseases of the circulatory system
CPT/HCPCS: 70450; 70496; 70498; 70551; 80048; 80053; 80061; 82607; 82728; 82746; 83036; 83735; 84443; 84484; 85025; 85027; 86803; 92523; 93005; 93880; 97116; 97163; 97167; 99285; G0378; Q9967